=== PATIENT | male | born 1975 | race Caucasian/White ===

== ENCOUNTER 2021-05-01 00:57 | Inpatient (IN) | payer OTHER ==
[~2021-05-01] VITALS: Ht 172.7 cm; Wt 72.6 kg
--- NOTE | ~2021-05-01 | PROC ---
[facility] [address] [place] [address] PROCEDURE REPORT Name: ANA COX Room: [address] IN .R.#: [id number] Admission: 05/01/21 Attend Phys: Diamond Curiel Discharge: Date of : 71 Report #: [id number] THIS REPORT FOR: cc: FAM - No family physician/PCP FAM - No family physician/PCP [facility],Medical Records Staff ~ For GI report, please see the Provation report in Perceptive 7 content. By: 1426Medical Records Staff FAISAL /ALATF
[2021-05-01 01:11] VITALS: BP 122/81
[2021-05-01 01:40] LABS: ABSOLUTE LYMPHOCYTES 2.2 thou/uL (0.8-5.3); ABSOLUTE MONOCYTES 0.2 thou/uL (0.0-1.2); ABSOLUTE NEUTROPHILS 4.2 thou/uL (1.6-8.1); BASOPHILS 0.5 %; EOSINOPHILS 0.2 %; HEMATOCRIT 27.9 % (42.0-52.0); HEMOGLOBIN 8.7 gm/dL (14.0-18.0); LYMPHOCYTES 32.7 %; MCH 34.3 pg (26.0-34.0); MCHC 31.3 g/dL (28.0-37.0); MCV 109.4 fL (80.0-100.0); MONOCYTES 3.5 %; MPV 10.6 fl. (7.2-11.1); NUCLEATED RBCS 2 /100WBC; PLATELET COUNT* 126 thou/uL (150-400); POLYS 63.1 %; RBC 2.55 mil/uL (4.50-6.00); RDW-CV 18.3 % (10.5-14.5); WBC 6.6 thou/uL (4.0-11.0)
[2021-05-01 01:50] LABS: CALCIUM 7.8 mg/dL (8.5-10.1); CREATININE 0.9 mg/dL (0.6-1.3); POTASSIUM 3.4 mmol/L (3.5-5.1)
[2021-05-01 02:03] LABS: ALBUMIN 1.7 g/dL (3.4-5.0); MAGNESIUM 2.2 mg/dL (1.8-2.4); TOTAL BILIRUBIN 9.5 mg/dL (<0.1-1.0); TOTAL PROTEIN 6.9 g/dL (6.4-8.2)
[2021-05-01 03:35] LABS: INR 1.6
[2021-05-01 06:47] LABS: URINE BLOOD NEGATIVE (Negative); URINE CLARITY CLEAR; URINE COLOR DARK YELLOW; URINE GLUCOSE-RANDOM TRACE (Negative); URINE LEUKOCYTES-REFLEX NEGATIVE (Negative); URINE NITRITE-REFLEX NEGATIVE (Negative); URINE PROTEIN TRACE (Negative); URINE SPECIFIC GRAVITY <= 1.005 (1.005-1.030); URINE UROBILINOGEN >= 8.0 E.U./dl (0.2-1.0)
[2021-05-01 06:55] LABS: URINE BILIRUBIN 3+ (Negative); URINE KETONES 3+ (Negative)
[2021-05-01 06:58] LABS: ACETEST (KETONE CONFIRMATORY) Small (Negative); ICTOTEST (BILI CONFIRMATORY) Positive (Negative)
[2021-05-01 07:32] VITALS: BP 134/78
[2021-05-01 09:45] LABS: ABSOLUTE BASOPHILS 0.1 thou/uL (0.0-0.2); ABSOLUTE LYMPHOCYTES 1.9 thou/uL (0.8-5.3); ABSOLUTE MONOCYTES 0.3 thou/uL (0.0-1.2); ABSOLUTE NEUTROPHILS 4.5 thou/uL (1.6-8.1); BASOPHILS 0.8 %; EOSINOPHILS 0.2 %; HEMATOCRIT 20.6 % (42.0-52.0); LYMPHOCYTES 28.1 %; MCH 33.7 pg (26.0-34.0); MPV 10.5 fl. (7.2-11.1); NUCLEATED RBCS 2 /100WBC; PLATELET COUNT* 98 thou/uL (150-400); POLYS 66.9 %; RBC 2.02 mil/uL (4.50-6.00); RDW-CV 17.4 % (10.5-14.5); WBC 6.7 thou/uL (4.0-11.0)
--- NOTE | 2021-05-01 09:52 | EKG ---
[place] [address] ELECTROCARDIOGRAM REPORT Name: ANA COX Room: [place] [address] ADM IN [facility]#: [id number] Admission: 05/01/21 Attend Phys: Nigel Pathak Discharge: Date of : 71 Date of Service: 05/01/21 0446 Report #: [id number] THIS REPORT FOR: //name// [facility] ED Test Date: 2021-05-01 Test Time: 04:46:50 Pat Name: ANA COX Department: Room: [place] [address] Gender: M Rn Clinical Appeals: [facility] : 1975 Requested By: Ann Oviedo Order Number: [id number] MD: Jone Knox Measurements Intervals Rush Rate: 120 P: 61 WV: 115 QRS: 54 QRSD: 102 T: 61 QT: 356 QTc: 503 Interpretive Statements Sinus tachycardia RSR' in V1 or V2, probably normal variant Prolonged QT interval No previous ECG available for comparison Electronically Signed On 05-01-2021 9:52:03 HR RECEPTIONIST by Jone Knox [email or web address] <ELECTRONICALLY SIGNED> By: Jone Knox MD, [facility] 05/01/21 0952 0446 0446 Jone Knox MD, [facility] /EPI
[2021-05-01 10:01] LABS: HEMOGLOBIN 6.8 gm/dL (14.0-18.0)
[2021-05-01 11:32] VITALS: BP 117/58; BP 127/68
[2021-05-01 15:32] VITALS: BP 141/90
[2021-05-01 18:42] LABS: HEMATOCRIT 22.3 % (42.0-52.0); HEMOGLOBIN 7.6 gm/dL (14.0-18.0)
[2021-05-01 19:31] VITALS: BP 130/90
[2021-05-01 23:30] VITALS: BP 147/99
[2021-05-02 03:30] VITALS: BP 137/98
[2021-05-02 07:51] VITALS: BP 136/76
[2021-05-02 08:08] LABS: ABSOLUTE BASOPHILS 0.1 thou/uL (0.0-0.2); ABSOLUTE EOSINOPHILS 0.1 thou/uL (0.0-0.7); ABSOLUTE LYMPHOCYTES 1.1 thou/uL (0.8-5.3); ABSOLUTE MONOCYTES 0.3 thou/uL (0.0-1.2); ABSOLUTE NEUTROPHILS 3.3 thou/uL (1.6-8.1); BASOPHILS 1.1 %; EOSINOPHILS 1.5 %; HEMATOCRIT 22.5 % (42.0-52.0); HEMOGLOBIN 7.3 gm/dL (14.0-18.0); MCH 32.1 pg (26.0-34.0); MCHC 32.6 g/dL (28.0-37.0); MCV 98.6 fL (80.0-100.0); MPV 10.1 fl. (7.2-11.1); NUCLEATED RBCS 1 /100WBC; PLATELET COUNT* 74 thou/uL (150-400); POLYS 67.4 %; RBC 2.28 mil/uL (4.50-6.00); WBC 4.9 thou/uL (4.0-11.0)
[2021-05-02 08:17] LABS: ALBUMIN 1.3 g/dL (3.4-5.0); CALCIUM 7.2 mg/dL (8.5-10.1); CREATININE 0.5 mg/dL (0.6-1.3); PHOSPHORUS* 1.7 mg/dL (2.5-4.9); POTASSIUM 3.1 mmol/L (3.5-5.1); TOTAL BILIRUBIN 10.4 mg/dL (<0.1-1.0); TOTAL PROTEIN 5.3 g/dL (6.4-8.2)
[2021-05-02 12:00] VITALS: BP 101/59
[2021-05-02 12:30] LABS: BE 5.6 mmol/L (-2 to +3); PCO2 47.9 mmHg (35.0-45.0); PO2 71.8 mmHg (75.0-100.0); pH 7.424 (7.340-7.450)
[2021-05-02 12:55] LABS: ANISOCYTOSIS 2+; HYPOCHROMASIA 2+
[2021-05-02 12:56] LABS: PLATELET ESTIMATE DECREASED
[2021-05-02 15:19] VITALS: BP 100/67
[2021-05-02 15:28] LABS: ABSOLUTE BASOPHILS 0.1 thou/uL (0.0-0.2); ABSOLUTE LYMPHOCYTES 1.2 thou/uL (0.8-5.3); ABSOLUTE MONOCYTES 0.3 thou/uL (0.0-1.2); ABSOLUTE NEUTROPHILS 3.4 thou/uL (1.6-8.1); BASOPHILS 2.7 %; EOSINOPHILS 0.6 %; HEMATOCRIT 21.7 % (42.0-52.0); HEMOGLOBIN 7.4 gm/dL (14.0-18.0); LYMPHOCYTES 23.1 %; MCH 32.6 pg (26.0-34.0); MCV 96.1 fL (80.0-100.0); MONOCYTES 6.1 %; MPV 9.8 fl. (7.2-11.1); NUCLEATED RBCS 1 /100WBC; PLATELET COUNT* 69 thou/uL (150-400); POLYS 67.5 %; RBC 2.26 mil/uL (4.50-6.00); RDW-CV 21.6 % (10.5-14.5); WBC 5.1 thou/uL (4.0-11.0)
[2021-05-02 21:00] VITALS: BP 105/67
[2021-05-02 21:05] VITALS: BP 98/66
[2021-05-03 01:55] VITALS: BP 110/65
[2021-05-03 05:50] VITALS: BP 112/62
[2021-05-03 08:40] VITALS: BP 121/76
[2021-05-03 12:36] LABS: ABSOLUTE BASOPHILS 0.1 thou/uL (0.0-0.2); ABSOLUTE EOSINOPHILS 0.1 thou/uL (0.0-0.7); ABSOLUTE LYMPHOCYTES 2.3 thou/uL (0.8-5.3); ABSOLUTE MONOCYTES 0.6 thou/uL (0.0-1.2); ABSOLUTE NEUTROPHILS 3.2 thou/uL (1.6-8.1); BASOPHILS 1.8 %; EOSINOPHILS 0.9 %; HEMATOCRIT 21.8 % (42.0-52.0); HEMOGLOBIN 7.1 gm/dL (14.0-18.0); LYMPHOCYTES 37.5 %; MCH 32.4 pg (26.0-34.0); MCHC 32.4 g/dL (28.0-37.0); MCV 100.1 fL (80.0-100.0); MONOCYTES 9.2 %; MPV 10.6 fl. (7.2-11.1); NUCLEATED RBCS 3 /100WBC; PLATELET COUNT* 69 thou/uL (150-400); POLYS 50.6 %; RBC 2.18 mil/uL (4.50-6.00); WBC 6.3 thou/uL (4.0-11.0)
[2021-05-03 12:38] VITALS: BP 123/87
[2021-05-03 12:45] LABS: ALBUMIN 1.4 g/dL (3.4-5.0); CALCIUM 7.1 mg/dL (8.5-10.1); CREATININE 0.7 mg/dL (0.6-1.3); POTASSIUM 3.3 mmol/L (3.5-5.1); TOTAL BILIRUBIN 10.3 mg/dL (<0.1-1.0); TOTAL PROTEIN 5.2 g/dL (6.4-8.2)
[2021-05-03 13:14] LABS: HYPOCHROMASIA 2+; MACROCYTES Occasional; MICROCYTES Occasional; PLATELET ESTIMATE DECREASED
[2021-05-03 16:52] VITALS: BP 123/82
[2021-05-03 20:00] VITALS: BP 99/62
[2021-05-04 00:22] VITALS: BP 106/71
[2021-05-04 04:00] VITALS: BP 125/77
[2021-05-04 06:11] LABS: HEMOGLOBIN 7.2 gm/dL (14.0-18.0)
[2021-05-04 06:13] LABS: HEMATOCRIT 22.3 % (42.0-52.0); MCH 32.6 pg (26.0-34.0); MCHC 32.3 g/dL (28.0-37.0); MPV 10.3 fl. (7.2-11.1); NUCLEATED RBCS 1 /100WBC; PLATELET COUNT* 74 thou/uL (150-400); WBC 6.1 thou/uL (4.0-11.0)
[2021-05-04 07:02] LABS: ALBUMIN 1.4 g/dL (3.4-5.0); CALCIUM 7.5 mg/dL (8.5-10.1); CREATININE 0.7 mg/dL (0.6-1.3); TOTAL BILIRUBIN 10.3 mg/dL (<0.1-1.0); TOTAL PROTEIN 5.8 g/dL (6.4-8.2)
[2021-05-04 07:03] LABS: POTASSIUM 2.5 mmol/L (3.5-5.1)
[2021-05-04 08:00] VITALS: BP 145/85
[2021-05-04 08:01] LABS: ABSOLUTE EOSINOPHILS 0.1 thou/uL (0.0-0.7); ABSOLUTE LYMPHOCYTES 1.1 thou/uL (0.8-5.3); ABSOLUTE MONOCYTES 0.5 thou/uL (0.0-1.2); ABSOLUTE NEUTROPHILS 4.4 thou/uL (1.6-8.1); ATYPICAL LYMPHS 1 %; MYELOCYTES 3 %
[2021-05-04 08:02] LABS: ANISOCYTOSIS 2+; PLATELET ESTIMATE DECREASED
[2021-05-04 08:55] LABS: CALCIUM 7.1 mg/dL (8.5-10.1); CREATININE 0.7 mg/dL (0.6-1.3)
[2021-05-04 08:58] LABS: MAGNESIUM 1.6 mg/dL (1.8-2.4); PHOSPHORUS* 2.1 mg/dL (2.5-4.9)
[2021-05-04 09:04] LABS: POTASSIUM 2.6 mmol/L (3.5-5.1)
[2021-05-04 12:22] VITALS: BP 97/58
[2021-05-04 16:00] VITALS: BP 107/80
[2021-05-04 20:00] VITALS: BP 117/85
[2021-05-04 21:47] LABS: MAGNESIUM 2.1 mg/dL (1.8-2.4)
[2021-05-05] VITALS: BP 125/82
[2021-05-05 04:48] VITALS: BP 114/70
[2021-05-05 06:18] LABS: ABSOLUTE BASOPHILS 0.1 thou/uL (0.0-0.2); ABSOLUTE EOSINOPHILS 0.1 thou/uL (0.0-0.7); ABSOLUTE LYMPHOCYTES 1.6 thou/uL (0.8-5.3); ABSOLUTE MONOCYTES 0.8 thou/uL (0.0-1.2); ABSOLUTE NEUTROPHILS 4.6 thou/uL (1.6-8.1); BASOPHILS 1.6 %; EOSINOPHILS 0.9 %; HEMATOCRIT 22.1 % (42.0-52.0); HEMOGLOBIN 7.3 gm/dL (14.0-18.0); LYMPHOCYTES 22.1 %; MCH 33.6 pg (26.0-34.0); MCHC 32.9 g/dL (28.0-37.0); MCV 102.2 fL (80.0-100.0); MONOCYTES 10.6 %; NUCLEATED RBCS 1 /100WBC; PLATELET COUNT* 90 thou/uL (150-400); POLYS 64.8 %; RBC 2.16 mil/uL (4.50-6.00); RDW-CV 22.9 % (10.5-14.5); WBC 7.1 thou/uL (4.0-11.0)
[2021-05-05 06:36] LABS: ALBUMIN 1.3 g/dL (3.4-5.0); CALCIUM 7.6 mg/dL (8.5-10.1); CREATININE 0.8 mg/dL (0.6-1.3); TOTAL BILIRUBIN 9.4 mg/dL (<0.1-1.0); TOTAL PROTEIN 5.6 g/dL (6.4-8.2)
[2021-05-05 06:46] LABS: POTASSIUM 4.1 mmol/L (3.5-5.1)
[2021-05-05 08:00] VITALS: BP 142/92
[2021-05-05 12:00] VITALS: BP 125/85
[2021-05-05 16:15] VITALS: BP 132/79
[2021-05-05 20:00] VITALS: BP 135/92
[2021-05-06] VITALS: BP 128/86
[2021-05-06 03:30] VITALS: BP 120/87
[2021-05-06 06:55] LABS: ABSOLUTE BASOPHILS 0.1 thou/uL (0.0-0.2); ABSOLUTE EOSINOPHILS 0.1 thou/uL (0.0-0.7); ABSOLUTE LYMPHOCYTES 1.6 thou/uL (0.8-5.3); ABSOLUTE MONOCYTES 0.5 thou/uL (0.0-1.2); ABSOLUTE NEUTROPHILS 3.8 thou/uL (1.6-8.1); BASOPHILS 1.6 %; EOSINOPHILS 1.8 %; HEMATOCRIT 22.7 % (42.0-52.0); HEMOGLOBIN 7.1 gm/dL (14.0-18.0); LYMPHOCYTES 26.1 %; MCH 32.9 pg (26.0-34.0); MCHC 31.3 g/dL (28.0-37.0); MCV 105.3 fL (80.0-100.0); MONOCYTES 8.2 %; MPV 10.2 fl. (7.2-11.1); NUCLEATED RBCS 1 /100WBC; PLATELET COUNT* 107 thou/uL (150-400); POLYS 62.3 %; RBC 2.15 mil/uL (4.50-6.00); RDW-CV 23.2 % (10.5-14.5); WBC 6.1 thou/uL (4.0-11.0)
[2021-05-06 07:09] LABS: ALBUMIN 1.1 g/dL (3.4-5.0); CALCIUM 7.6 mg/dL (8.5-10.1); CREATININE 0.8 mg/dL (0.6-1.3); POTASSIUM 3.3 mmol/L (3.5-5.1); TOTAL BILIRUBIN 8.2 mg/dL (<0.1-1.0); TOTAL PROTEIN 5.3 g/dL (6.4-8.2)
[2021-05-06 08:15] VITALS: BP 153/95
[2021-05-06 12:00] VITALS: BP 121/85
[2021-05-06 16:00] VITALS: BP 129/82
[2021-05-06 20:00] VITALS: BP 116/90
[2021-05-07] VITALS: BP 129/84
[2021-05-07 04:00] VITALS: BP 138/93
[2021-05-07 05:34] LABS: ABSOLUTE BASOPHILS 0.1 thou/uL (0.0-0.2); ABSOLUTE EOSINOPHILS 0.1 thou/uL (0.0-0.7); ABSOLUTE LYMPHOCYTES 1.6 thou/uL (0.8-5.3); ABSOLUTE MONOCYTES 0.5 thou/uL (0.0-1.2); ABSOLUTE NEUTROPHILS 3.2 thou/uL (1.6-8.1); BASOPHILS 1.4 %; LYMPHOCYTES 29.3 %; MCH 32.5 pg (26.0-34.0); MCHC 30.3 g/dL (28.0-37.0); MCV 107.1 fL (80.0-100.0); MONOCYTES 9.6 %; MPV 10.4 fl. (7.2-11.1); NUCLEATED RBCS 1 /100WBC; PLATELET COUNT* 143 thou/uL (150-400); POLYS 57.7 %; RBC 2.15 mil/uL (4.50-6.00); RDW-CV 22.9 % (10.5-14.5); WBC 5.6 thou/uL (4.0-11.0)
[2021-05-07 05:51] LABS: PREALBUMIN 6.4 mg/dL (18.0-35.7)
[2021-05-07 06:10] LABS: ALBUMIN 1.1 g/dL (3.4-5.0); CALCIUM 7.7 mg/dL (8.5-10.1); CREATININE 0.8 mg/dL (0.6-1.3); POTASSIUM 3.7 mmol/L (3.5-5.1); TOTAL BILIRUBIN 7.6 mg/dL (<0.1-1.0); TOTAL PROTEIN 5.2 g/dL (6.4-8.2)
[2021-05-07 07:52] VITALS: BP 130/70
[2021-05-07 09:25] LABS: ANISOCYTOSIS 2+
[2021-05-07 11:41] VITALS: BP 93/70
[2021-05-07 16:00] VITALS: BP 119/85
[2021-05-07 20:00] VITALS: BP 126/87
[2021-05-08 04:00] VITALS: BP 118/74
[2021-05-08 05:32] LABS: HEMATOCRIT 22.4 % (42.0-52.0); HEMOGLOBIN 7.3 gm/dL (14.0-18.0); MCH 33.3 pg (26.0-34.0); MCHC 32.7 g/dL (28.0-37.0); MPV 10.3 fl. (7.2-11.1); RBC 2.2 mil/uL (4.50-6.00); RDW-CV 21.2 % (10.5-14.5); WBC 6.1 thou/uL (4.0-11.0)
[2021-05-08 05:42] LABS: INR 1.2; PROTIME 12.1 Seconds (9.20-11.50)
[2021-05-08 05:44] LABS: ALBUMIN 1.1 g/dL (3.4-5.0); CALCIUM 7.6 mg/dL (8.5-10.1); CREATININE 0.7 mg/dL (0.6-1.3); POTASSIUM 3.5 mmol/L (3.5-5.1); TOTAL BILIRUBIN 7.8 mg/dL (<0.1-1.0); TOTAL PROTEIN 5.2 g/dL (6.4-8.2)
[2021-05-08 08:49] VITALS: BP 123/88
[2021-05-08 12:00] VITALS: BP 122/90
[2021-05-08 16:00] VITALS: BP 125/79
[2021-05-08 20:00] VITALS: BP 125/83
[2021-05-09 02:20] VITALS: BP 121/87
[2021-05-09 04:42] LABS: ALBUMIN 1.2 g/dL (3.4-5.0); CALCIUM 7.5 mg/dL (8.5-10.1); CREATININE 0.8 mg/dL (0.6-1.3); POTASSIUM 3.1 mmol/L (3.5-5.1); TOTAL BILIRUBIN 8.4 mg/dL (<0.1-1.0); TOTAL PROTEIN 5.7 g/dL (6.4-8.2)
[2021-05-09 06:20] LABS: INR 1.2; PROTIME 12.1 Seconds (9.20-11.50)
[2021-05-09 06:29] VITALS: BP 137/93
[2021-05-09 08:30] VITALS: BP 115/81
[2021-05-09 14:57] VITALS: BP 117/84
[2021-05-09 18:03] VITALS: BP 112/83
[2021-05-09 20:00] VITALS: BP 152/89
[2021-05-10] VITALS: BP 120/87
[2021-05-10 07:57] VITALS: BP 133/92
--- NOTE | 2021-05-10 11:07 | PATH ---
[address] [address] PATHOLOGY RPT PROCEDURE Name: VIDAL COX Room: [address] IN M.R.#: [id number] Admission: 05/01/21 Date of : 71 Discharge: Report #: [id number] Path Case #: [id number] [facility] Accession Number: [id number] . 01 Material submitted: . duodenum - BIOPSY OF DUODENUM . 01 Clinical history: . EGD IN OR . 02 Diagnosis: Small bowel "duodenum", biopsy: - Duodenal mucosa with features of nodular peptic duodenitis. - Negative for dysplasia and malignancy. (LAI:[facility]; 05/09/2021) [facility] 05/09/2021 [facility]2 Local . 02 Comment: The duodenal biopsy shows mild villous blunting with areas of surface gastric foveolar metaplasia. There is an increase in mononuclear cells within the lamina propria and active cryptitis. (MLK:[place]; 05/09/2021) . 02 Electronically signed: . Ambrocio Nelson MD, Pathologist NPI- [id number] . 01 Gross description: . The specimen is received in formalin, labeled "Vidal Cox, biopsy duodenum". Received are 2 segments of pale evans tissue ranging in size from 0.2 cm to 0.3 cm in maximum dimensions. The specimen is submitted entirely in cassette A1.([facility]; 05/08/2021) [facility] 05/08/2021 1705 Local . 02 Pathologist provided ICD-10: K29.80 . 02 CPT . 376579 Specimen Comment: A courtesy copy of this report has been sent to [phone] Specimen Comment: [phone] Specimen Comment: Report sent to / DR MOLINA Specimen Comment: A duplicate report has been generated due to demographic updates. Performed at: [address] [facility] [address] [place] [id number] [place] [address] PATHOLOGY RPT PROCEDURE Name: KENNYVIDAL J Room: [address] ADM IN M.R.#: [id number] Admission: 05/01/21 Date of : 71 Discharge: Report #: [id number] Path Case #: [id number] MD Deepak Eller MD Phone: [phone] Performed at: [address], [place], [place] [id number] MD Jin Baker MD Phone: [phone]
[2021-05-10 13:18] VITALS: BP 128/83
[2021-05-10 20:00] VITALS: BP 121/79
[2021-05-11] VITALS: BP 129/66
[2021-05-11 04:00] VITALS: BP 130/91
[2021-05-11 08:00] VITALS: BP 101/65
[2021-05-11 12:17] VITALS: BP 106/72
[2021-05-11 13:59] LABS: ABSOLUTE BASOPHILS 0.1 thou/uL (0.0-0.2); ABSOLUTE EOSINOPHILS 0.1 thou/uL (0.0-0.7); ABSOLUTE LYMPHOCYTES 2.1 thou/uL (0.8-5.3); ABSOLUTE MONOCYTES 0.7 thou/uL (0.0-1.2); ABSOLUTE NEUTROPHILS 4.3 thou/uL (1.6-8.1); BASOPHILS 1.4 %; EOSINOPHILS 1.2 %; HEMATOCRIT 23.5 % (42.0-52.0); HEMOGLOBIN 7.3 gm/dL (14.0-18.0); LYMPHOCYTES 29.2 %; MCH 32.8 pg (26.0-34.0); MCV 105.6 fL (80.0-100.0); MONOCYTES 9.8 %; NUCLEATED RBCS 0 /100WBC; PLATELET COUNT* 304 thou/uL (150-400); POLYS 58.4 %; RBC 2.22 mil/uL (4.50-6.00); RDW-CV 19.9 % (10.5-14.5); WBC 7.4 thou/uL (4.0-11.0)
[2021-05-11 14:10] LABS: ALBUMIN 1.1 g/dL (3.4-5.0); CALCIUM 7.5 mg/dL (8.5-10.1); CREATININE 0.8 mg/dL (0.6-1.3); MAGNESIUM 1.9 mg/dL (1.8-2.4); POTASSIUM 3.8 mmol/L (3.5-5.1); TOTAL BILIRUBIN 5.4 mg/dL (<0.1-1.0); TOTAL PROTEIN 5.4 g/dL (6.4-8.2)
[2021-05-11 17:03] VITALS: BP 106/71
[2021-05-11 19:57] VITALS: BP 104/74
[2021-05-12] VITALS: BP 121/84
[2021-05-12 04:00] VITALS: BP 139/89
[2021-05-12 11:34] VITALS: BP 124/86
[2021-05-12 16:00] VITALS: BP 140/101
[2021-05-12 20:00] VITALS: BP 133/85
[2021-05-13] VITALS (7 sets, daily range): BP systolic 105–137; BP diastolic 73–99
[2021-05-14] VITALS: BP 140/90
[2021-05-14 04:27] VITALS: BP 95/66
[2021-05-14 08:01] VITALS: BP 116/84
[2021-05-14 13:04] VITALS: BP 126/89
[2021-05-14 16:07] VITALS: BP 144/96
[2021-05-15] VITALS (7 sets, daily range): BP systolic 127–155; BP diastolic 86–98
[2021-05-15 05:45] LABS: CALCIUM 7.9 mg/dL (8.5-10.1); CREATININE 0.8 mg/dL (0.6-1.3); POTASSIUM 3.5 mmol/L (3.5-5.1)
[2021-05-15 05:48] LABS: HEMATOCRIT 30.7 % (42.0-52.0); HEMOGLOBIN 9.4 gm/dL (14.0-18.0); MCH 32.3 pg (26.0-34.0); MCHC 30.5 g/dL (28.0-37.0); MCV 105.9 fL (80.0-100.0); MPV 9.9 fl. (7.2-11.1); NUCLEATED RBCS 0 /100WBC; PLATELET COUNT* 370 thou/uL (150-400); RDW-CV 18.4 % (10.5-14.5); WBC 6.2 thou/uL (4.0-11.0)
[2021-05-15 07:38] LABS: ABSOLUTE BASOPHILS 0.2 thou/uL (0.0-0.2); ABSOLUTE LYMPHOCYTES 1.7 thou/uL (0.8-5.3); ABSOLUTE MONOCYTES 0.9 thou/uL (0.0-1.2); ABSOLUTE NEUTROPHILS 3.4 thou/uL (1.6-8.1); ANISOCYTOSIS 1+; HYPOCHROMASIA 1+; PLATELET ESTIMATE ADEQUATE
[2021-05-16] VITALS: BP 156/90
[2021-05-16 08:00] VITALS: BP 140/90
[2021-05-16] MEDS ORDERED: XIFAXAN550 M1 PO (13:37)
[2021-05-16] MEDS ORDERED: VITAMIN B-1100 M1 PO (13:37)
[2021-05-16] MEDS ORDERED: PRENATAL PO (13:37)
[2021-05-16] MEDS ORDERED: LORAZEPAM 1 MG T1 MG PO (13:37)
[2021-05-16] MEDS ORDERED: TRAMADOL 50 MG50 MG PO (13:37)
[2021-05-16] MEDS ORDERED: MIRALAX17 GM PO (13:37)
[2021-05-16] MEDS ORDERED: FOLIC ACID1 MG PO (13:37)
[2021-05-16] MEDS ORDERED: PROTONIX40 M2 PO (13:37)
[2021-05-16] MEDS ORDERED: LACTULOSE20 GM/30 M PO (13:37)
[2021-05-16] MEDS ORDERED: ALBUTEROL2.5 MG/0.5 INH (13:37)
[2021-05-16 16:00] VITALS: BP 145/97
[2021-05-16 19:40] VITALS: BP 137/84
[2021-05-17] VITALS: BP 132/91
[2021-05-17 09:00] VITALS: BP 148/91
[2021-05-17 16:50] VITALS: BP 130/93
[2021-05-17 22:00] VITALS: BP 124/87
[2021-05-18] VITALS: BP 116/76
[2021-05-18 16:30] VITALS: BP 139/93
[2021-05-18 20:00] VITALS: BP 137/88
[2021-05-19 08:00] VITALS: BP 138/85
[2021-05-19 11:36] VITALS: BP 134/81
[2021-05-19 16:00] VITALS: BP 136/77
[2021-05-19 20:10] VITALS: BP 145/103
[2021-05-20 08:00] VITALS: BP 127/95
[2021-05-20 16:00] VITALS: BP 116/73
== END 2021-05-20 19:45 | DRG 432 ==
LOC: M.ERS 00:57 → M.TBA-ER 03:32 → M.2W 05-02 20:45
PROVIDERS: Emergency Medicine; Internal Medicine; Nurse Practitioner Adult Health; ADMIT Internal Medicine; ATTEND Internal Medicine
PROC: 30233N1 Transfusion of Nonautologous Red Blood Cells into Peripheral Vein, Percutaneous Approach (ICD-10-PCS; principal; 2021-05-01)
PROC: 05HF33Z Insertion of Infusion Device into Left Cephalic Vein, Percutaneous Approach (ICD-10-PCS; 2021-05-01)
PROC: 0DJ08ZZ Inspection of Upper Intestinal Tract, Via Natural or Artificial Opening Endoscopic (ICD-10-PCS; 2021-05-07)
DX: K70.30 Alcoholic cirrhosis of liver without ascites (principal); G92.8 Other toxic encephalopathy; K85.90 Acute pancreatitis without necrosis or infection, unspecified; K76.6 Portal hypertension; E87.0 Hyperosmolality and hypernatremia; K92.2 Gastrointestinal hemorrhage, unspecified; K72.90 Hepatic failure, unspecified without coma; Z20.822 Contact with and (suspected) exposure to COVID-19; D64.9 Anemia, unspecified; K70.10 Alcoholic hepatitis without ascites; K31.89 Other diseases of stomach and duodenum; F10.129 Alcohol abuse with intoxication, unspecified; Z88.8 Allergy status to other drugs, medicaments and biological substances; F32.A Depression, unspecified; K44.9 Diaphragmatic hernia without obstruction or gangrene; K31.9 Disease of stomach and duodenum, unspecified; K22.2 Esophageal obstruction